=== PATIENT | male | born 1965 | race African-American/Black ===

== ENCOUNTER → 2021-03-25 | Outpatient (CLI) | payer OTHER ==
[2021-03-25 12:38] LABS: BASO % 0 % (0-3); EOS % 0 % (0-3); HEMATOCRIT 41.4 % (39.0-53.0); LYMPH # 1.9 x10^3/uL (1.0-4.8); LYMPH % 19 % (24-48); MEAN CORPUSCULAR HEMOGLOBIN 31 pg (25-35); MEAN CORPUSCULAR HGB CONC 34 g/dL (31-37); MEAN CORPUSCULAR VOLUME 91 fL (79-100); MONO # 0.7 x10^3/uL (0.0-1.1); MONO % 7 % (0-9); NEUT # 7.3 x10^3uL (1.8-7.7); NEUT % 73 % (31-73); PLATELET COUNT 235 x10^3/uL (140-400); RED BLOOD COUNT 4.56 x10^6/uL (4.30-5.70); RED CELL DISTRIBUTION WIDTH 12.6 % (11.5-14.5)
[2021-03-25 12:40] LABS: ALBUMIN 3.7 g/dL (3.4-5.0); ALBUMIN/GLOBULIN RATIO 0.9 (1.0-1.7); C REACTIVE PROTEIN 7.1 mg/L (0-3.3); CREATININE 1.2 mg/dL (0.7-1.3); GFR 76.3; POTASSIUM 3.7 mmol/L (3.5-5.1); TOTAL BILIRUBIN 0.7 mg/dL (0.2-1.0); TOTAL PROTEIN 7.9 g/dL (6.4-8.2); URIC ACID 9.2 mg/dL (3.5-7.2)
[2021-03-25 16:26] LABS: SEDIMENTATION RATE 19 (0-15)
--- NOTE | 2021-03-25 16:57 | RAD ---
XR BILAT FEET 3 VIEWS History: Reason: GOUT / Spl. Instructions: / History: Technique: 3 views bilateral feet Comparison: None. Findings: Right foot: No dislocation. No acute fracture. No erosive changes identified. First distal phalangeal joint space narrowing with marginal osteophyte formation. Left foot: Left first proximal phalanx erosive changes along the distal medial aspect. No dislocation . No acute fracture. Impression: 1. Left first proximal phalanx erosive changes compatible with history of gout arthropathy. Electronically signed by: Shashi Lombardo DO (03/25/2021 4:55 PM) [id number]
[2021-03-25 23:10] LABS: RHEUMATOID FACTOR 11.5 IU/mL (<14.0)
[2021-03-26 18:09] LABS: ANA INTERP Negative (.)
== END ==
LOC: RAD 11:43
PROVIDERS: ATTEND Podiatrist Foot & Ankle Surgery
DX: M10.9 Gout, unspecified (principal); M25.774 Osteophyte, right foot; M25.871 Other specified joint disorders, right ankle and foot; M19.071 Primary osteoarthritis, right ankle and foot; M19.072 Primary osteoarthritis, left ankle and foot
CPT/HCPCS: 36415; 80053; 84550; 85025; 85651; 86038; 86140; 86431; 73630-50

== ENCOUNTER → 2021-04-15 | Outpatient (CLI) | payer OTHER ==
[2021-04-15 11:30] LABS: ALBUMIN 3.8 g/dL (3.4-5.0); ALBUMIN/GLOBULIN RATIO 0.9 (1.0-1.7); CALCIUM 9.5 mg/dL (8.5-10.1); CREATININE 1.4 mg/dL (0.7-1.3); GFR 63.9; POTASSIUM 3.8 mmol/L (3.5-5.1); TOTAL BILIRUBIN 0.8 mg/dL (0.2-1.0); TOTAL PROTEIN 8.1 g/dL (6.4-8.2)
== END ==
LOC: LAB 10:03
PROVIDERS: ATTEND Family Medicine
DX: Z00.00 Encounter for general adult medical examination without abnormal findings (principal)
CPT/HCPCS: 36415; 80053; 80061; 84550

== ENCOUNTER 2021-05-13 04:58 | Emergency (ER) | payer OTHER ==
[~2021-05-13] VITALS: Ht 185.4 cm; Wt 105.0 kg
--- NOTE | 2021-05-13 05:17 | PHYS DOC ---
Adult General Chief Complaint Chief Complaint: LOWER EXT PAIN HPI HPI Patient is a 55-year-old male with a past medical history significant for gout on allopurinol who presents with a chief complaint of gout exacerbation of right big toe that has been going on a couple of days. States he had this several times in the past. States he took some Tylenol with mild relief. Denies any recent travel, traumas, illnesses, fevers, chest pain, shortness of breath, abdominal pain, nausea, vomiting, multijoint disease. States he is also had a little bit of generalized right ankle pain, 5 out of 10, dull and achy in nature. Review of Systems Review of Systems Review of systems otherwise unremarkable except noted in HPI Physical Exam Physical Exam Constitutional: Well developed, well nourished, no acute distress, non-toxic appearance. [] HENT: Normocephalic, atraumatic, no oral exudates, nose normal. [] Eyes: conjunctiva normal, no discharge. [] Neck: Normal range of motion, no tenderness, supple, no stridor. [] Cardiovascular:Heart rate regular rhythm, no murmur [] Lungs & Thorax: Bilateral breath sounds clear to auscultation [] Skin: Warm, dry, no erythema, no rash. [] Extremities: Right big toe tenderness and mild erythema, range of motion intact, neurovascular exam intact Neurologic: Alert and oriented X 3, normal motor function, normal sensory function, able to sit, stand and walk, no focal deficits noted. [] Psychologic: Affect normal, judgement normal, mood normal. [] EKG EKG [] Radiology/Procedures Radiology/Procedures [] Heart Score C/O Chest Pain: No Risk Factors: Risk Factors: DM, Current or recent (<one month) smoker, HTN, HLP, family history of CAD, obesity. Risk Scores: Risk Factors: DM, Current or recent (<one month) smoker, HTN, HLP, family history of CAD, obesity. Course & Med Decision Making Course & Med Decision Making Patient is a 55-year-old male who presents with a chief complaint of gout exacerbation Vital signs notable initially for hypertension and tachycardia. Improved in the emergency department, however patient had not taken his lisinopril, hydrochlorothiazide or amlodipine today. Given Toradol, and steroids. Imaging with no acute osseous abnormalities. Discussed gout management and lifestyle changes needed to manage gout at home. Advised to follow-up this morning with primary care physician to set up a reevaluation follow-up visit. Advised to continue allopurinol as directed by his primary care physician. Gave return cautions to the ED. Patient grateful, verbalized understanding and agreed with plan of discharge. [] Dragon Disclaimer Dragon Disclaimer This electronic medical record was generated, in whole or in part, using a voice recognition dictation system. Departure Departure: Impression: Primary Impression: Exacerbation of gout Additional Impression: Ankle pain Disposition: HOME / SELF CARE / HOMELESS Condition: GOOD Referrals: HAY PRUITT MD (PCP) Patient Instructions: Gout, RICE - Routine Care for Injuries Additional Instructions: Thank you for coming into the emergency department tonight and allowing us to take care of you. Please read the attached information carefully to go over things we discussed. Please continue a Tylenol, ibuprofen and ice regimen. You can take 1000 mg of Tylenol every 8 hours. You can take 800 mg of ibuprofen every 8 hours. Please use ice and keep elevated. Please continue your allopurinol. Please use your prescription pain medicine as needed for breakthrough pain, 1 tablet every 6 hours. Please be able advised that your prescription pain medicine has 325 mg of Tylenol in each tablet. Please do not exceed 3000 mg of Tylenol daily. Please adjust your diet and fluid intake as we discussed. Please follow-up this morning with your primary care physician to set up a reevaluation appointment in about a week. Please come back with new or concerning symptoms as discussed. Problem Qualifiers ANISHA SMALLS MD May 13, 2021 05:17
[2021-05-13] MEDS ORDERED: KETOROLAC 30 MG/ML VIAL. ONE (05:25)
[2021-05-13] MEDS: KETOROLAC 30 MG/ML VIAL. IM ONE (05:34)
[2021-05-13] MEDS: DEXAMETHASONE 4 MG TABLET PO ONE (05:34)
[2021-05-13] MEDS: ACETAMINOPHEN/CODEINE 300/30MG 4TABLET STARTPACK. PO ONE (05:34)
[2021-05-13 05:58] VITALS: BP 150/103
--- NOTE | 2021-05-13 06:52 | RAD ---
EXAM: Right ankle 3 views. HISTORY: Right ankle pain. COMPARISON: None. FINDINGS: Three views of the right ankle are obtained. There is mild soft tissue swelling laterally and anteriorly. No fractures are identified. Alignment i s normal. Joint spaces are maintained. IMPRESSION: 1. Soft tissue swelling. No fracture. Electronically signed by: Elzbieta Roach MD (05/13/2021 6:49 AM) [id number]
== END 2021-05-13 05:59 | disposition home or self-care (01) ==
LOC: ER 04:58
DX: M10.9 Gout, unspecified (principal); M25.571 Pain in right ankle and joints of right foot
CPT/HCPCS: 73610; 96372; 99283; J1885; J8540